=== PATIENT | female | born 1990 | race Caucasian/White ===

== ENCOUNTER 2020-03-19 20:02 | Emergency (ER) | payer OTHER, SELFPAY ==
[2020-03-19 20:03] VITALS: BP 144/80; PULSE 77; RESP 17; TEMP 37.4; O2SAT 99
--- NOTE | 2020-03-19 20:28 | ED.DENTAL ---
HPI - Dental/Oral General Chief complaint: Dental/Oral Stated complaint: tooth pain Time Seen by Provider: 03/19/20 20:22 Source: patient Mode of arrival: ambulatory Limitations: no limitations History of Present Illness HPI Narrative: This is a 29 year old female that presents to the ER for toothache x 1 month. Reports intermittent right lower dental pain. Reports worsening last night with facial swelling noted this morning. Denies fever or vomiting. MD Complaint: tooth pain Location: Tooth # (29) Related Data Allergies Allergy/AdvReac Type Severity Reaction Status Date / Time Penicillins Allergy Unknown Hives / Verified 05/04/19 22:23 Red Face Review of Systems Review of Systems: Narrative: CONSTITUTIONAL: Denies fever ENT: Reports dentalgia. Denies dysphagia RESPIRATORY: Denies dyspnea. GASTROINTESTINAL: Denies vomiting All systems reviewed & are unremarkable except as noted in HPI and below PMFSH Social History Social History (Updated 03/19/20 @ 20:30 by Caroline Shea PA-C) Smoking status: Current every day smoker Substance use type: marijuana Gender identity (if verbalized by the patient): Female Exam Narrative: Exam Narrative: GENERAL: Well-appearing, well-nourished, and in no acute distress. HEAD: Normocephalic, atraumatic. EYES: EOMI. ENT:Mucous membranes moist. Oropharynx without tonsillar hypertrophy exudate or other lesions. Poor dentition. Right sided facial swelling overlying the mandible. Tooth #29 tender to palpation with surrounding erythema and edema, no obvious abscess. No trismus NECK: Supple. No adenopathy or masses. CHEST: Airway patent EXTREMITIES: Normal range of motion. No edema. SKIN: Warm, dry, no rash. NEURO: No focal deficits. Alert and oriented x3. PSYCH: Normal mood and affect Course Vital Signs Vital signs: Vital Signs Temperature 99.4 F 03/19/20 20:03 Pulse Rate 77 03/19/20 20:03 Respiratory Rate 17 03/19/20 20:03 Blood Pressure 144/80 H 03/19/20 20:03 Pulse Oximetry 99 03/19/20 20:03 Temperature 99.4 F 03/19/20 20:03 Pulse Rate 77 03/19/20 20:03 Respiratory Rate 17 03/19/20 20:03 Blood Pressure 144/80 H 03/19/20 20:03 Pulse Oximetry 99 03/19/20 20:03 MDM - Dental/Oral MDM Narrative Medical decision making narrative: Patient presents to the emergency department for toothache x1 month. Reports worsening yesterday with swelling of the face this morning. Patient is afebrile and nontoxic-appearing. Airway is patent. No signs of trismus. Patient's labs are significant for leukocytosis. No elevation in inflammatory markers. I did order a CT scan of the facial bones to further evaluate facial swelling. Patient did not want to stay for this and signed out AMA. I did give her a prescription for oral clindamycin for dental infection. She was instructed to return at any time Lab Data Attestation: I reviewed the patient's lab results. Result diagrams: 03/19/20 21:15 03/19/20 21:15 Labs: Lab Results 03/19/20 03/19/20 Range/Units 21:15 21:15 WBC 13.9 H (4.5-10.0) K/mm3 RBC 4.86 (4.2-5.4) M/mm3 Hgb 15.2 H (12.0-15.0) g/dL Hct 44.7 (37.0-47.0) % MCV 92.0 (80-100) fl MCH 31.3 (26-34) pg MCHC 34.0 (32-36) g/dl RDW 12.0 (11.5-14.5) % Plt Count 323 (150-375) k/mm3 MPV 9.0 (7.4-10.4) fl Immature Gran % (Auto) 0.4 (0-0.5) % Neut % (Auto) 80.1 H (45.5-73.1) % Lymph % (Auto) 14.0 L (18.3-44.2) % Gregg % (Auto) 4.7 (2.6-8.5) % Eos % (Auto) 0.6 (0-4.4) % Baso % (Auto) 0.2 (0.2-1.2) % Lymph # (Auto) 1.95 (0.9-3.2) K/mm3 Gregg # (Auto) 0.7 H (0.1-0.6) K/mm3 Eos # (Auto) 0.1 (0-0.3) K/mm3 Baso # (Auto) 0.0 (0.0-0.1) K/mm3 Abs Immat Gran (auto) 0.05 H (0.00-0.031) K/mm3 Absolute Neuts (auto) 11.1 H (1.3-6.7) K/mm3 Absolute Nucleated RBC 0.0 (0.0-0.012) K/mm3 Nucleated RBC % 0.0 (0.0-0.2) % ESR 8 (0-20) mm/hr S
[2020-03-19] MEDS: KETOROLAC 30 MG/ML VIAL (*BKC) IV PUSH (21:19)
[2020-03-19 21:22] LABS: Basophils Percent Auto 0.2 % (0.2-1.2); Eosinophils Absolute Auto 0.1 K/mm3 (0-0.3); Eosinophils Percent Auto 0.6 % (0-4.4); Hematocrit 44.7 % (37.0-47.0); Hemoglobin 15.2 g/dL (12.0-15.0); Immature Granulocyte Absolute 0.05 K/mm3 (0.00-0.031); Immature Granulocyte Percent A 0.4 % (0-0.5); Lymphocytes Absolute Auto 1.95 K/mm3 (0.9-3.2); Mean Corpuscular Hemoglobin 31.3 pg (26-34); Monocytes Absolute Auto 0.7 K/mm3 (0.1-0.6); Monocytes Percent Auto 4.7 % (2.6-8.5); Neutrophils Absolute Auto 11.1 K/mm3 (1.3-6.7); Neutrophils Percent Auto 80.1 % (45.5-73.1); Platelet Count Result 323 k/mm3 (150-375); Red Blood Count 4.86 M/mm3 (4.2-5.4); White Blood Count 13.9 K/mm3 (4.5-10.0)
[2020-03-19 21:40] LABS: Blood Urea Nitrogen 9 mg/dL (7-17); CRP < 0.5 mg/dL (<1.0); Calcium 9.1 mg/dL (8.4-10.2); Carbon Dioxide 25 mmol/L (22-30); Chloride 108 mmol/L (98-107); Estimated CRCL calculation 94 ml/min; Estimated Glomerular Filt Rate > 60; Glucose 101 mg/dL (65-105); Potassium 3.4 mmol/L (3.4-5.0); Sodium 141 mmol/L (137-145)
[2020-03-19 21:48] LABS: Erythrocyte Sedimentation Rate 8 mm/hr (0-20)
[2020-03-19 22:44] VITALS: BP 132/80; PULSE 88; RESP 20; TEMP 36.7; O2SAT 99
--- NOTE | 2020-03-19 22:46 | PC.NURSE ---
pT LEFT AMA. PT STATING THAT SHE NEEDS TO LEAVE NOW BEFORE SHE MISSES THE BUS. IV REMOVED. AMA PAPERWORK SIGNED.
== END 2020-03-19 22:30 | disposition left against medical advice (07) ==
PROVIDERS: Physician Assistant; Emergency Provider Emergency Medicine; PCP Physician Assistant Medical
DX: K08.89 Other specified disorders of teeth and supporting structures (principal); F17.200 Nicotine dependence, unspecified, uncomplicated
CPT/HCPCS: 36415; 80048; 81025; 85025; 85652; 86140; 96374; 99283; J1885